=== PATIENT | male | born 1945 | race Caucasian/White ===

== ENCOUNTER → 2018-05-03 | Outpatient (CLI) | payer OTHER ==
[~2018-05-03] MED LIST: AMBIEN 5 MG TABL5 M1 PO; B12INJ IM; CEFTIN 250250 MG/52 PO; CELEBREX 200 M200 M1 PO; CYANOCOBAL1000 MCG/1 IJ; CYMBALTA30 MG PO; CYMBALTA60 MG PO; DOCUSATE SODIU100 MG PO; FISH OIL 1,001000 M2 PO; FLOMAX0.4 MG PO; FLONASE 0.05%50 MCG NASAL; GABAPENTIN 100100 MG PO; GLIPIZIDE PO; GLUCOTROL5 MG PO; HM FISH OIL 1,1 EACH PO; KEPPRA 500 MG500 M1 PO; METAMUCIL PAC1 UDPKT PO; METFORMIN HCL500 MG PO; METFORMIN PO; MILK OF MA2400 MG/10 PO; MOBIC15 MG PO; MS CONTIN15 MG PO; NORCO 5-325 TA1 EACH PO; OXYCODONE HCL 55 MG PO; OXYCODONE HCL15 MG PO; OXYCONTIN10 M1 PO; PERCOCET 7.5-31 EACH PO; ROBAXIN 750 MG750 MG PO; SINGULAIR 10 MG10 M1 PO; TOPAMAX 25 MG T25 M1 PO; VITAMIN B COMP1 EAC7 PO; VITAMIN D PO; XARELTO10 MG PO; ZOLPIDEM PO; ZYRTEC10 MG PO
[2018-05-03 13:42] LABS: BF RBC 22023 /mm3; TOTAL CELL COUNT 44650 /mm3
[2018-05-03 13:44] LABS: BF LYMPHOCYTES 2 %; BF POLYS 98 %; CLARITY CLOUDY; COLOR AMBER; TOTAL VOLUME 10 ml
[2018-05-03 13:53] LABS: SOURCE RIGHT SHOULDER
[2018-05-03 13:54] LABS: BF MONOCYTES 0 %
[2018-05-06 11:05] LABS: SOURCE RIGHT SHOULDER
== END ==
LOC: M.LAB 12:44
PROVIDERS: Orthopaedic Surgery
DX: Z96.611 Presence of right artificial shoulder joint (principal)

== ENCOUNTER → 2018-07-02 | Outpatient (CLI) | payer OTHER ==
[2018-07-02 20:24] LABS: BF RBC 15333 /mm3; TOTAL CELL COUNT 57702 /mm3
[2018-07-02 20:31] LABS: CLARITY CLOUDY; TOTAL VOLUME 2.5 ml
[2018-07-02 20:57] LABS: BF LYMPHOCYTES 3 %; BF MONOCYTES 2 %; BF POLYS 95 %
[2018-07-02 20:58] LABS: SOURCE SYNOVIAL
[2018-07-04 10:09] LABS: BODY FLUID PROTEIN 5.1 g/dL (())
== END ==
LOC: M.LAB 16:18
PROVIDERS: Orthopaedic Surgery
DX: T84.59XA Infection and inflammatory reaction due to other internal joint prosthesis, initial encounter (principal); M00.9 Pyogenic arthritis, unspecified; A41.9 Sepsis, unspecified organism; Y83.8 Other surgical procedures as the cause of abnormal reaction of the patient, or of later complication, without mention of misadventure at the time of the procedure; Y92.89 Other specified places as the place of occurrence of the external cause

== ENCOUNTER → 2018-08-03 | Outpatient (CLI) | payer OTHER | LOC: M.RAD 15:06 | DX: J98.4 Other disorders of lung (principal); M25.78 Osteophyte, vertebrae; M40.294 Other kyphosis, thoracic region; E11.9 Type 2 diabetes mellitus without complications; Z95.828 Presence of other vascular implants and grafts ==

== ENCOUNTER → 2018-12-27 | Outpatient (CLI) | payer OTHER ==
[2018-12-27 12:28] LABS: ABSOLUTE BASOPHILS 0.1 thou/uL (0.0-0.2); ABSOLUTE EOSINOPHILS 0.2 thou/uL (0.0-0.7); ABSOLUTE LYMPHOCYTES 1.3 thou/uL (0.8-5.3); ABSOLUTE MONOCYTES 0.3 thou/uL (0.0-1.2); ABSOLUTE NEUTROPHILS 3.3 thou/uL (1.6-8.1); BASOPHILS 1.3 %; EOSINOPHILS 3.8 %; HEMATOCRIT 40.2 % (42.0-52.0); HEMOGLOBIN 13.5 gm/dL (14.0-18.0); LYMPHOCYTES 25.5 %; MCH 26.6 pg (26.0-34.0); MCHC 33.5 g/dL (28.0-37.0); MCV 79.5 fL (80.0-100.0); MONOCYTES 6.4 %; MPV 8.9 fl. (7.2-11.1); NUCLEATED RBCS 0 /100WBC; PLATELET COUNT* 316 thou/uL (150-400); RBC 5.05 mil/uL (4.50-6.00); RDW-CV 19.2 % (10.5-14.5); WBC 5.2 thou/uL (4.0-11.0)
[2018-12-27 12:37] LABS: CALCIUM 9.1 mg/dL (8.5-10.1); CREATININE 0.8 mg/dL (0.6-1.3); POTASSIUM 3.8 mmol/L (3.5-5.1); TOTAL BILIRUBIN 0.2 mg/dL (<0.1-1.0); TOTAL PROTEIN 7.3 g/dL (6.4-8.2)
[2018-12-27 13:53] LABS: ESR (SEDRATE) 18 mm/hr (0-20)
== END ==
LOC: M.LAB 12:01
PROVIDERS: Physician Assistant
DX: M25.511 Pain in right shoulder (principal)

== ENCOUNTER 2020-03-04 15:30 | Emergency (ER) | payer OTHER ==
[~2020-03-04] VITALS: Ht 167.6 cm; Wt 56.2 kg
[~2020-03-04 15:30] MED LIST changes: -GABAPENTIN 100100 MG PO; +NEURONTIN 300M300 M2 PO
[2020-03-04] MEDS ORDERED: LORAZEPAM 0.50.5 MG PO (15:48)
[2020-03-04] MEDS ORDERED: DESYREL150 MG PO (15:49)
[2020-03-04] MEDS ORDERED: PERCOCET PO (16:22)
[2020-03-04 16:38] VITALS: BP 113/58
== END 2020-03-04 16:47 | disposition home or self-care (01) ==
LOC: M.ERS 15:30
DX: G89.29 Other chronic pain (principal); M54.5 Low back pain; Z76.0 Encounter for issue of repeat prescription; E11.9 Type 2 diabetes mellitus without complications

== ENCOUNTER → 2020-03-26 | Outpatient (CLI) | payer OTHER ==
[~2020-03-26] MED LIST changes: +DESYREL150 MG PO; +LORAZEPAM 0.50.5 MG PO; +PERCOCET PO
== END | disposition home or self-care (01) ==
LOC: M.PC 09:17
PROVIDERS: ATTEND Anesthesiology Pain Medicine
DX: M51.36 Other intervertebral disc degeneration, lumbar region (principal); I10 Essential (primary) hypertension; M19.90 Unspecified osteoarthritis, unspecified site; N40.0 Benign prostatic hyperplasia without lower urinary tract symptoms; E11.9 Type 2 diabetes mellitus without complications; D64.9 Anemia, unspecified; Z79.899 Other long term (current) drug therapy; Z79.84 Long term (current) use of oral hypoglycemic drugs; Z98.890 Other specified postprocedural states

== ENCOUNTER 2020-06-21 05:39 | Emergency (ER) | payer OTHER ==
[~2020-06-21] VITALS: Ht 165.1 cm; Wt 59.0 kg
[2020-06-21] MEDS ORDERED: TESTOSTERONE INJECTION (06:01)
[2020-06-21 06:18] LABS: URINE BILIRUBIN NEGATIVE (Negative); URINE BLOOD NEGATIVE (Negative); URINE CLARITY CLEAR; URINE COLOR YELLOW; URINE GLUCOSE-RANDOM NEGATIVE (Negative); URINE KETONES NEGATIVE (Negative); URINE LEUKOCYTES NEGATIVE (Negative); URINE NITRITE NEGATIVE (Negative); URINE PROTEIN NEGATIVE (Negative); URINE UROBILINOGEN 0.2 E.U./dl (0.2-1.0)
[2020-06-21 06:27] LABS: AMP/METHAMP Negative (Negative); BARBITURATES Negative (Negative); BENZODIAZEPINES Negative (Negative); COCAINE Negative (Negative); METHADONE Negative (Negative); OPIATES Negative (Negative); PCP Negative (Negative); THC Negative (Negative)
[2020-06-21 06:38] LABS: HEMATOCRIT 39.5 % (42.0-52.0); HEMOGLOBIN 12.6 gm/dL (14.0-18.0); MCH 24.7 pg (26.0-34.0); MCV 77.2 fL (80.0-100.0); MPV 8.8 fl. (7.2-11.1); RBC 5.12 mil/uL (4.50-6.00); RDW-CV 15.4 % (10.5-14.5); WBC 9.4 thou/uL (4.0-11.0)
[2020-06-21 06:48] LABS: CALCIUM 8.5 mg/dL (8.5-10.1); CREATININE 0.9 mg/dL (0.6-1.3)
[2020-06-21 06:52] LABS: ALCOHOL 75 mg/dL (<10); SALICYLATE < 2.8 mg/dL (2.8-20.0)
[2020-06-21 06:53] LABS: ACETAMINOPHEN < 2 ug/mL (10-30); ALBUMIN 3.9 g/dL (3.4-5.0); TOTAL BILIRUBIN 0.4 mg/dL (<0.1-1.0); TOTAL PROTEIN 7.5 g/dL (6.4-8.2)
[2020-06-21 10:55] VITALS: BP 138/72
== END 2020-06-21 10:55 | disposition home or self-care (01) ==
LOC: M.ERS 05:39
PROVIDERS: Personal Emergency Response Attendant
DX: F10.129 Alcohol abuse with intoxication, unspecified (principal); Y90.3 Blood alcohol level of 60-79 mg/100 ml; R45.851 Suicidal ideations; F32.9 Major depressive disorder, single episode, unspecified; E11.9 Type 2 diabetes mellitus without complications

== ENCOUNTER 2021-01-11 19:57 | Emergency (ER) | payer OTHER ==
[~2021-01-11] VITALS: Ht 167.6 cm; Wt 59.0 kg
[~2021-01-11 19:57] MED LIST changes: +TESTOSTERONE INJECTION
[2021-01-11 20:50] VITALS: BP 131/70
== END 2021-01-11 20:50 | disposition home or self-care (01) ==
LOC: M.ERS 19:57
DX: S61.432A Puncture wound without foreign body of left hand, initial encounter (principal); M19.90 Unspecified osteoarthritis, unspecified site; E11.9 Type 2 diabetes mellitus without complications; Z79.899 Other long term (current) drug therapy; Z98.890 Other specified postprocedural states; W22.8XXA Striking against or struck by other objects, initial encounter; Y93.89 Activity, other specified; Y92.89 Other specified places as the place of occurrence of the external cause; Y99.8 Other external cause status

== ENCOUNTER → 2021-01-12 | Emergency (ER) | payer OTHER ==
[~2021-01-12] VITALS: Ht 167.6 cm; Wt 59.0 kg
[2021-01-12 22:20] VITALS: BP 138/64
== END ==
LOC: M.ERS 19:13
DX: S61.412D Laceration without foreign body of left hand, subsequent encounter (principal); E11.9 Type 2 diabetes mellitus without complications; M19.90 Unspecified osteoarthritis, unspecified site; Z98.890 Other specified postprocedural states; X58.XXXD Exposure to other specified factors, subsequent encounter